=== PATIENT | female | born 1960 | race American Indian/Alaskan Native ===

== ENCOUNTER 2017-07-20 10:11 | Day surgery (SDC) | payer OTHER ==
[2017-07-12 12:23] VITALS: BMI 28.7
[2017-07-20] MEDS ORDERED: Lidocaine 1% Inj (20ml) ONE (11:54)
[2017-07-20] MEDS ORDERED: Propofol 10 mg/ml Inj (20 ML) ONE (11:54)
[2017-07-20 12:30] VITALS: O2SAT 99
[2017-07-20] MEDS ORDERED: Sodium Chloride 0.9% 500 ML IV SCH (12:30)
[2017-07-20 12:43] VITALS: RESP 18
[2017-07-20] MEDS ORDERED: Silver Sulfadiazine 1% Cream (20 gm) TOP PRN (13:42)
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
[2017-07-20] MEDS ORDERED: Silver Sulfadiazine 1% Cream (20 gm) TOP ONE (13:45)
[2017-07-20 14:47] VITALS: PULSE 83; TEMP 98.5
[2017-07-20 14:51] VITALS: BP 129/66
== END 2017-07-20 14:30 | disposition home or self-care (01) ==
LOC: ENDO 10:11
PROVIDERS: ATTEND Internal Medicine Gastroenterology
DX: Z12.11 Encounter for screening for malignant neoplasm of colon (principal); D12.4 Benign neoplasm of descending colon; K64.8 Other hemorrhoids; T21.11XA Burn of first degree of chest wall, initial encounter; T31.0 Burns involving less than 10% of body surface; X10.0XXA Contact with hot drinks, initial encounter; Y92.230 Patient room in hospital as the place of occurrence of the external cause
CPT/HCPCS: 45380; 88305; J2704; J7040 ×2